=== PATIENT | female | born 1995 | race Hispanic/Latino ===

== ENCOUNTER 2021-12-02 19:03 | Emergency (ER) | payer SELFPAY ==
[2021-12-02 19:48] LABS: Urine Blood 2+ (Negative); Urine Glucose Negative (Negative); Urine Protein Negative (Negative); Urine Specific Gravity 1.025 (1.005-1.030)
[2021-12-02 20:01] LABS: Urine Bacteria 20-50 /HPF (<20)
[2021-12-02 20:02] LABS: Urine Amorphous Sediment 1+ /HPF (NONE SEEN); Urine Mucus 2+ /HPF (NONE SEEN)
[2021-12-02 20:02] LABS: Urine Specific Gravity/Preg 1.005 (1.005-1.030)
[2021-12-02 20:09] LABS: Absolute Lymphocytes (CBC) 1.5 K/uL (0.7-4.9); Hematocrit 45.1 % (36.0-45.0); Lymphocytes % 14.5 % (15.3-44.8); MPV 8.4 fL (7.6-11.3); RBC Red Blood Cell Count 4.61 M/uL (3.86-4.86)
[2021-12-02 20:13] LABS: Albumin 3.8 g/dL (3.4-5.0); Bilirubin Total 0.8 mg/dL (0.2-1.0); Potassium 3.8 mmol/L (3.5-5.1); Protein, Total 7.5 g/dL (6.4-8.2)
[2021-12-02 20:41] LABS: SARS-COV-2 RT PCR NEGATIVE (NEGATIVE)
--- NOTE | 2021-12-02 20:55 | RAD REPORT ---
EXAM DESCRIPTION: CT - Abdomen Pelvis W Contrast - 12/02/2021 8:26 pm CLINICAL HISTORY: ABD PAIN COMPARISON: CT study 04/04/2014 TECHNIQUE: Biphasic, helical CT imaging of the abdomen and pelvis was performed following 100 ml non -ionic IV contrast. No oral contrast administered. All CT scans are performed using dose optimization technique as appropriate and may include automated exposure control or mA/KV adjustment according to patient size. FINDINGS: No suspicious findings in the lung bases. The liver, spleen, and pancreas show no suspicious focal findings. Liver attenuation is borderline to mildly fatty infiltrated. Gallbladder and biliary tree are also without suspicious finding. Symmetric renal function is seen with no hydronephrosis or suspicious renal mass. No pyelonephritis o r acute parenchymal process. No bladder abnormalities. No adrenal abnormalities. Uterus and ovaries s how no suspicious findings. No dilated bowel loops or bowel wall thickening. Appendix is normal. No free air, free fluid or infla mmatory stranding. No mass or bulky lymphadenopathy. No suspicious bony findings. IMPRESSION: Contrast enhanced CT abdomen and pelvis showing no acute or emergent finding. No significant change from 2014 study.
--- NOTE | 2021-12-02 23:08 | EDPHYS ---
Physician Documentation [facility] Name: Lety Guzman Age: 26 yrs Sex: Female : 1995 Arrival Date: 12/02/2021 Time: 19:06 Bed 4 Private MD: ED Physician Ayad Arroyo HPI: 12/02 19:38 This 26 yrs old Female presents to ER via Ambulatory with complaints of pm1 Nausea, Abdominal Pain. 19:38 The patient presents to the emergency department with nausea, vomiting. Onset: The pm1 symptoms/episode began/occurred this morning. Possible causes: unknown. The symptoms are aggravated by nothing. The symptoms are alleviated by Bowel movement. Associated signs and symptoms: Pertinent negatives: dysuria, fever. Severity of symptoms: in the emergency department the symptoms have resolved Pain is currently a 0 / 10. The patient has not experienced similar symptoms in the past. The patient has not recently seen a physician. 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 - Social history:: Smoking status: Patient reports the use of cigarette tobacco products, smokes one-half pack cigarettes per day, Patient uses alcohol, on a daily basis. ROS: 19:38 Constitutional: Negative for fever, chills, and weight loss, Cardiovascular: Negative pm1 for chest pain, palpitations, and edema, Respiratory: Negative for shortness of breath, cough, wheezing, and pleuritic chest pain. 19:38 Back: Negative for injury and pain, : Negative for injury, bleeding, discharge, and swelling, MS/Extremity: Negative for injury and deformity, Skin: Negative for injury, rash, and discoloration, Neuro: Negative for headache, weakness, numbness, tingling, and seizure. 19:38 Abdomen/GI: Positive for abdominal pain, nausea and vomiting, Negative for diarrhea, constipation. 19:38 All other systems are negative. Exam: 19:38 Constitutional: This is a well developed, well nourished patient who is awake, alert, pm1 and in no acute distress. Head/Face: Normocephalic, atraumatic. 19:38 Back: No spinal tenderness. No costovertebral tenderness. Full range of motion. Skin: Warm, dry with normal turgor. Normal color with no rashes, no lesions, and no evidence of cellulitis. MS/ Extremity: Pulses equal, no cyanosis. Neurovascular intact. Full, normal range of motion. 19:38 Cardiovascular: Exam negative for acute changes, Rate: normal, Rhythm: regular, Pulses: no pulse deficits are appreciated, Heart sounds: normal, normal S1and S2. 19:38 Respiratory: Exam negative for acute changes, respiratory distress, shortness of breath. 19:38 Abdomen/GI: Exam negative for acute changes, Inspection: abdomen appears normal, Palpation: abdomen is soft and non-tender, in all quadrants. 19:38 Neuro: Exam negative for acute changes, Orientation: is normal, Mentation: is normal, Motor: moves all fours. Vital Signs: 19:10 BP 123 / 64; Pulse 96; Resp 18; Temp 98.2(TE); Pulse Ox 97% on R/A; Weight 74.84 kg; ld1 Height 5 ft. 1 in. (154.94 cm); Pain 7/10; 19:32 BP 109 / 58; Pulse 85; Resp 18; Pulse Ox 95% on R/A; Pain 0/10; tw5 21:47 BP 117 / 85; Pulse 80; Resp 18 S; Pulse Ox 97% on R/A; as6 23:18 BP 120 / 84; Pulse 83; Resp 18 S; Pulse Ox 95% on R/A; as6 19:10 Body Mass Index 31.18 (74.84 kg, 154.94 cm) ld1 MDM: 20:37 Patient medically screened. pm1 23:07 Data reviewed: vital signs. Data interpreted: Pulse oximetry: on room air is 97 %. pm1 Interpretation: normal. Counseling: I had a detailed discussion with the patient and/or guardian regarding: the historical points, exam findings, and any diagnostic results supporting the discharge/admit diagnosis, lab results, radiology results, the need for outpatient follow up, to return to the emergency department if symptoms worsen or persist or if there are any questions or concerns that arise at home. 23:07 ED course: Patient reports resolution of abdominal pain on ER arrival post bowel pm1 movement. Patient refused pain medicines in the ER and has a prescription since her pain was resolved along with her nausea and vomiting. Patient without any dysuria, impression urine micro contaminated specimen. 12/02 19:31 Order name: CBC with Diff; Complete Time: 20:38 tw5 12/02 19:31 Order name: CMP; Complete Time: 20:38 tw5 12/02 19:31 Order name: Lipase; Complete Time: 20:38 tw5 12/02 19:31 Order name: Urine Microscopic Only; Complete Time: 20:38 tw5 12/02 19:42 Order name: COVID-19/FLU A+B (Document "Date of Onset" if Symptomatic) pm1 12/02 19:43 Order name: COVID-19/FLU A+B; Complete Time: 20:45 EDOH 12/02 19:31 Order name: IV Saline Lock; Complete Time: 19:34 tw5 12/02 19:31 Order name: Labs collected and sent; Complete Time: 19:34 tw5 12/02 19:47 Order name: Strep; Complete Time: 20:38 pm1 12/02 19:47 Order name: CT Abd/Pelvis - IV Contrast Only; Complete Time: 21:50 pm1 12/02 19:48 Order name: Urine Dipstick-Ancillary; Complete Time: 20:38 EDOH 12/02 19:50 Order name: Urine --Ancillary (enter results); Complete Time: 20:38 cs9 12/02 20:03 Order name: Urine Culture [facility] 12/02 20:17 Order name: Throat Culture [facility] 12/02 19:31 Order name: Urine Dipstick-Ancillary (obtain specimen); Complete Time: 19:49 tw5 12/02 19:31 Order name: Urine Test (obtain specimen); Complete Time: 19:49 tw5 Administered Medications: No medications were administered Disposition: 12/03 08:42 Co-signature as Attending Physician, Ayad Arroyo MD I agree with the assessment and kdr plan of care. Disposition Summary: 12/02/21 23:07 Discharge Ordered Location: Home pm1 Problem: new pm1 Symptoms: have improved pm1 Condition: Stable pm1 Diagnosis - Abdominal pain, unspecified pm1 Followup: pm1 - With: Emergency Department - When: As needed - Reason: Worsening of condition Followup: pm1 - With: Private Physician - When: 2 - 3 days - Reason: Recheck today's complaints, Continuance of care, Re-evaluation by your physician Discharge Instructions: - Discharge Summary Sheet pm1 - Abdominal Pain, Adult pm1 Forms: - Medication Reconciliation Form pm1 - Thank You Letter pm1 - Antibiotic Education pm1 - Prescription Opioid Use pm1 Signatures: Dispatcher [employer] EDMS Ayad Arroyo MD MD kdr Marinas, Patrick, NP FIRE BATTALION CHIEF pm1 Nano Barcenas RN RN ld1 Di Caballero tw5
--- NOTE | 2021-12-02 23:08 | ER ---
Nurse's Notes [facility] Name: Lety Guzman Age: 26 yrs Sex: Female : 1995 Arrival Date: 12/02/2021 Time: 19:06 Bed 4 Private MD: Diagnosis: Abdominal pain, unspecified Presentation: 12/02 19:10 Chief complaint: Patient states: I have been throwing up all morning. Now I have a pain ld1 in my RUQ. Coronavirus screen: Client presents with at least one sign or symptom that may indicate coronavirus-19. Standard/surgical mask placed on the client. Ebola Screen: No symptoms or risks identified at this time. Initial Sepsis Screen: Does the patient meet any 2 criteria? No. Patient's initial sepsis screen is negative. Does the patient have a suspected source of infection? No. Patient's initial sepsis screen is negative. Risk Assessment: Do you want to hurt yourself or someone else? Patient reports no desire to harm self or others. Onset of symptoms was December 02, 2021. 19:10 Method Of Arrival: Ambulatory ld1 19:10 Acuity: NIGHAT 3 ld1 Triage Assessment: 19:10 General: Appears in no apparent distress. comfortable, Behavior is calm, cooperative, ld1 appropriate for age. Pain: Complains of pain in right upper quadrant Pain does not radiate. Pain currently is 7 out of 10 on a pain scale. Quality of pain is described as throbbing, Pain began gradually, Is intermittent. Neuro: Level of Consciousness is awake, alert, obeys commands, Oriented to person, place, time, situation, Appropriate for age. Cardiovascular: Capillary refill < 3 seconds Patient's skin is warm and dry. Respiratory: Airway is patent Respiratory effort is even, unlabored. GI: Abdomen is round non-distended, Reports diarrhea, nausea, vomiting. 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 - Social history:: Smoking status: Patient reports the use of cigarette tobacco products, smokes one-half pack cigarettes per day, Patient uses alcohol, on a daily basis. Screenin:32 Abuse screen: Denies threats or abuse. Denies injuries from another. Nutritional tw5 screening: No deficits noted. Tuberculosis screening: No symptoms or risk factors identified. Fall Risk None identified. Assessment: 19:32 General: Reports "I woke up this morning with intense pain on the right side of my tw5 stomach. It got worse after I started vomiting. I have vomiting a couple of times today. The pain isnt constant, it comes and goes. Right now there isnt any pain but at the worse it is like a sharp 7.". Pain: Pain currently is 7 out of 10 on a pain scale. GI: Abdomen is non-distended, Bowel sounds present X 4 quads. Abdomen is tender to palpation in right upper quadrant. Derm: Skin is intact, is healthy with good turgor, Skin is pink, warm \\T\\ dry. 21:47 Reassessment: Patient appears in no apparent distress at this time. Patient and/or as6 family updated on plan of care and expected duration. Pain level reassessed. Patient is alert, oriented x 3, equal unlabored respirations, skin warm/dry/pink. pt rate pain 0/10 Patient states feeling better. Vital Signs: 19:10 BP 123 / 64; Pulse 96; Resp 18; Temp 98.2(TE); Pulse Ox 97% on R/A; Weight 74.84 kg; ld1 Height 5 ft. 1 in. (154.94 cm); Pain 7/10; 19:32 BP 109 / 58; Pulse 85; Resp 18; Pulse Ox 95% on R/A; Pain 0/10; tw5 21:47 BP 117 / 85; Pulse 80; Resp 18 S; Pulse Ox 97% on R/A; as6 23:18 BP 120 / 84; Pulse 83; Resp 18 S; Pulse Ox 95% on R/A; as6 19:10 Body Mass Index 31.18 (74.84 kg, 154.94 cm) ld1 ED Course: 19:06 Patient arrived in ED. es 19:10 Arm band placed on right wrist. ld1 19:11 Triage completed. ld1 19:17 Ludwin Avery, SHIVA is Primary Nurse. as6 19:29 Osei Mayers NP is PHCP. pm1 19:29 Ayad Arroyo MD is Attending Physician. pm1 19:32 Awaiting lab results. tw5 19:32 Patient has correct armband on for positive identification. Placed in gown. Bed in low tw5 position. Call light in reach. Pulse ox on. NIBP on. Door closed. Noise minimized. Lights dimmed. Moved to private room. Warm blanket given. Verbal reassurance given. 19:32 Initial lab(s) drawn, by me, sent to lab. Urine collected: clean catch specimen. tw5 Inserted saline lock: 20 gauge in right antecubital area, using aseptic technique. Blood collected. 19:49 CBC with Diff Sent. tw5 19:49 CMP Sent. tw5 19:49 Lipase Sent. tw 19:49 Urine Microscopic Only Sent. tw5 19:53 Primary Nurse role handed off by Ludwin Avery RN tw5 19:53 Di Caballero is Primary Nurse. tw 19:53 Strep Sent. tw 19:53 COVID-19/FLU A+B Sent. tw 19:53 COVID-19/FLU A+B (Document "Date of Onset" if Symptomatic) Sent. tw 19:53 COVID swab sent to lab. Flu and/or RSV swab sent to lab. Strep swab sent to lab. tw5 20:26 CT Abd/Pelvis - IV Contrast Only In Process Unspecified. EDMS 23:20 No provider procedures requiring assistance completed. IV discontinued, intact, as6 bleeding controlled, No redness/swelling at site. Pressure dressing applied. Administered Medications: No medications were administered Outcome: 23:07 Discharge ordered by . pm1 23:20 Discharged to home ambulatory. as6 23:20 Condition: good 23:20 Discharge instructions given to patient, Instructed on discharge instructions, follow up and referral plans. Demonstrated understanding of instructions, follow-up care. 23:21 Patient left the ED. as6 Signatures: Dispatcher [employer] EDCarie Aguila Patrick, GENNARO MOTOR VEHICLE CLERK pm1 Nano Barcenas, SHIVA RN ld1 Di Caballero tw5 Ludwin Avery RN RN as6
[2021-12-03 03:25] VITALS: TEMP 98.2
[2021-12-03 03:27] VITALS: BP 120/84; O2SAT 95
== END 2021-12-02 23:21 | disposition home or self-care (01) ==
LOC: ER 19:03
DX: R10.9 Unspecified abdominal pain (principal); R11.2 Nausea with vomiting, unspecified; F17.210 Nicotine dependence, cigarettes, uncomplicated; Z20.822 Contact with and (suspected) exposure to COVID-19
CPT/HCPCS: 0240U; 36415; 74177; 80053; 81003; 81015; 81025; 83690; 85025; 87070; 87081; 87086; 87088; 99284; Q9967

== ENCOUNTER 2022-02-17 02:13 | Emergency (ER) | payer SELFPAY ==
[2022-02-17 03:17] LABS: Absolute Lymphocytes (CBC) 3.4 K/uL (0.7-4.9); Hematocrit 45.1 % (36.0-45.0); Lymphocytes % 32.1 % (15.3-44.8); MPV 8.2 fL (7.6-11.3); RBC Red Blood Cell Count 4.66 M/uL (3.86-4.86)
[2022-02-17 03:24] LABS: Potassium 3.6 mmol/L (3.5-5.1)
[2022-02-17] MEDS ORDERED: TETANUS & DIPHTHERIA TOX,ADULT 0.5 ML VIAL ONE (03:34)
[2022-02-17] MEDS ORDERED: LIDOCAINE 1% W/EPI 1:100,000 MDV 20 ML VIAL ONE (03:45)
[2022-02-17 05:18] LABS: Urine Blood Trace-intact (Negative); Urine Glucose Negative (Negative); Urine Protein Negative (Negative)
[2022-02-17] MEDS ORDERED: CIPROFLOXACIN HCL 500 MG TAB ONE (05:24)
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
[2022-02-17 05:59] VITALS: TEMP 98.3; O2SAT 100
[2022-02-17 06:01] VITALS: BP 122/61
--- NOTE | 2022-02-18 14:21 | RAD REPORT ---
EXAM DESCRIPTION: CT Head/Brain Without Contrast CT Cervical Spine Without Contrast CLINICAL HISTORY: Fall COMPARISON: None. TECHNIQUE: Head/brain and cervical spine axial images acquired without contrast. Coronal and sagitta l reformats created. Exam performed according to departmental dose-optimization program which include s automated exposure control, adjustment of mA and/or kV according to patient size, and/or use of ite rative reconstruction technique. FINDINGS: Head/Brain- No midline shift, mass effect, intracranial hemorrhage, or hydrocephalus. Brain parenchyma unremarkable. Right maxillary sinus shows mild mucosal thickening. Mastoid air cells clear. No skull fracture or significant skull lesion. Cervical Spine- Evaluation more difficult due to patient motion artifact. Cervical vertebral bodies show normal height and alignment. No fracture or subluxation. Cervical disc spaces unremarkable. No significant central canal or neuroforaminal stenosis. No paraspinal hematoma. Mild thyromegaly. Impacted left lower molar tooth. IMPRESSION: 1. Head/Brain- Unremarkable. 2. Cervical Spine- No CT evidence of cervical spine injury. Electronically signed by: Sunny Luque MD 02/17/2022 3:40 AM CDT Due to temporary technical issues with the PACS/Fluency reporting system, reports are being signed by the in house radiologist without review as a courtesy to ensure prompt reporting. The interpreting r adiologist is fully responsible for the content of the report.
--- NOTE | 2022-02-18 14:26 | RAD REPORT ---
EXAM DESCRIPTION: XR Left Hand Complete, 3 or More Views CLINICAL HISTORY: The patient is 26 years old and is Female; laceration TECHNIQUE: Frontal, lateral and oblique views of the left hand. COMPARISON: No relevant prior studies available. FINDINGS: BONES/JOINTS: Unremarkable. No acute fracture. No dislocation. SOFT TISSUES: Laceration to the thenar eminence and base of the second digit is present. No ra diopaque foreign body. IMPRESSION: Laceration to the thenar eminence and base of the second digit is present. No underlyi ng acute bony abnormality. Electronically signed by: Anitha Aguilar MD 02/17/2022 3:50 AM CDT Due to temporary technical issues with the PACS/Fluency reporting system, reports are being signed by the in house radiologist without review as a courtesy to ensure prompt reporting. The interpreting r adiologist is fully responsible for the content of the report.
== END 2022-02-17 05:54 | disposition home or self-care (01) ==
LOC: ER 02:13
PROC: 0JQK0ZZ Repair Left Hand Subcutaneous Tissue and Fascia, Open Approach (ICD-10-PCS; principal; 2022-02-17)
DX: S61.412A Laceration without foreign body of left hand, initial encounter (principal); T14.8XXA Other injury of unspecified body region, initial encounter; W19.XXXA Unspecified fall, initial encounter; F17.210 Nicotine dependence, cigarettes, uncomplicated
CPT/HCPCS: 36415; 70450; 72125; 80048; 81003; 81025; 85025; 86850; 86900; 86901; 90471; 90714; 99284

== ENCOUNTER 2022-05-13 03:02 | Emergency (ER) | payer SELFPAY ==
--- OUTSIDE RECORDS SUMMARY | 2022-05-13 03:06 | XMS REPORT | Continuity of Care Document ---
:1995 Author Organization [facility] t Address [address] [place] [address] Care Team Providers Name Role Phone PCP, PATIENT DOES NOT HAVE A Primary Care Physician Unavaila LORY Van Attending Clinician Unavailable Lory Ivy Attending Clinician LORY GABRIEL Admitting Clinician Unavailable Problems This patient has no known problems. Allergies, Adverse Reactions, Alerts Allergy Allergy Status Severity Reaction(s) Onset Inactive Treating Comm ents Source Name Type Date Date Clinician NO KNOWN Drug Active Univers ALLERGIE Class ity of S [facility] Social History Social Habit Start Date Stop Date Quantity Comments Source Exposure to 2022-02-07 2022-02-17 Not sure [facility] SARS-CoV-2 (event) 00:00:00 19:28:00 Medica l Branch Sex Assigned At [birth year] [facility] 00:00:00 00:00:00 [facility] Smoking Status Start Date Stop Date Source Unknown if ever smoked [facility] Medications Ordered Filled Start Stop Current Ordering Indication Dosage Frequency Signature Comments Components Source Medication Medication Date Date Medication? Clinician (SIG) Name Name ibuprofen 800mg 800 mg, Uni vers (IBU) 02-18 Oral, ity of tablet 800 00:45: 23:43 ONCE, 1 Vadim as mg 00 :00 dose, On Medical 02/17/22 Branch at 1945, SIMA Vital Signs Vital Name Observation Time Observation Value Comments Source Systolic blood 2022-02-17 23:27:00 108 mm[Hg] Univer sity of pressure [facility] Diastolic blood 2022-02-17 23:27:00 98 mm[Hg] Unive rsity of [facility] Heart rate 2022-02-17 23:27:00 87 /min [facility] Body temperature 2022-02-17 23:27:00 36.56 [facility] Respiratory rate 2022-02-17 23:27:00 19 /min [facility] Body height 2022-02-17 23:27:00 152.4 cm [facility] Body weight 2022-02-17 23:27:00 74.844 kg [facility] BMI 2022-02-17 23:27:00 32.22 kg/m2 [facility] Oxygen saturation in 2022-02-17 23:27:00 98 /min [facility] Arterial blood by [facility] Pulse oximetry Branch Procedures Procedure Date / Time Performed Performing Clinician Sour e XR HAND 3+ VW LEFT 2022-02-17 23:42:58 Lory Gabriel [facility] NOTICE OF PRIVACY 2022-02-17 23:11:19 Doctor Unassigned, No [facility] PRACTICES Name [facility] Branch Encounters Start End Encounter Admission Attending Care Care Encounter Source Date/Time Date/Time Type Type Clinicians Facility Department ID 2022-02-17 2022-02-17 Emergency X HARVEY NHSIMONA ERT [id number] [facility] 18:29:00 19:37:00 LORY gifford [facility] 2022-02-17 2022-02-17 Emergency FE Gabriel [id number] [facility] 18:29:00 19:37:00 Lory NEFF [id number] i ty [facility] [id number] [facility] [id number] [facility] 084 Branch Results This patient has no known results.
[2022-05-13 03:43] LABS: Hematocrit 46.6 % (36.0-45.0); Lymphocytes % 42.8 % (15.3-44.8); MCV 96.7 fL (80-100); MPV 7.8 fL (7.6-11.3); RBC Red Blood Cell Count 4.82 M/uL (3.86-4.86)
[2022-05-13 04:02] LABS: ALT/SGPT 33 U/L (12-78); AST/SGOT 16 U/L (15-37); Albumin 4.3 g/dL (3.4-5.0); Alkaline Phosphatase 54 U/L (45-117); BUN Blood Urea Nitrogen 9 mg/dL (7-18); Bicarbonate 19 mmol/L (21-32); Bilirubin Direct 0.1 mg/dL (0-0.2); Bilirubin Total 0.5 mg/dL (0.2-1.0); Glomerular Filtration Rate 101 ml/min (=/>90); Glucose Level 92 mg/dL (74-106); Potassium 3.5 mmol/L (3.5-5.1); Sodium Level 143 mmol/L (136-145)
--- NOTE | 2022-05-13 04:07 | ER ---
Nurse's Notes [facility] Name: Lety Guzman Age: 26 yrs Sex: Female : 1995 Arrival Date: 05/13/2022 Time: 03:13 Bed 3 Private MD: Diagnosis: Alcohol abuse with intoxication;Altered mental status, unspecified Presentation: 05/13 03:14 Chief complaint: EMS states: they were called out by the correction for report of pt tw5 unresponsive with excessive alcohol ingestion. Coronavirus screen: At this time, the client does not indicate any symptoms associated with coronavirus-19. Ebola Screen: No symptoms or risks identified at this time. Initial Sepsis Screen: Does the patient meet any 2 criteria? No. Patient's initial sepsis screen is negative. Does the patient have a suspected source of infection? No. Patient's initial sepsis screen is negative. Risk Assessment: Do you want to hurt yourself or someone else? Patient reports no desire to harm self or others. Onset of symptoms is unknown. 03:14 Method Of Arrival: EMS: [facility] tw5 03:14 Acuity: NIGHAT 2 tw5 Triage Assessment: 03:30 General: Behavior is agitated, anxious, restless, uncooperative, Smells of alcohol. tw5 Historical: - Allergies: 03:15 No Known Allergies; tw5 - Immunization history:: unknown. - Social history:: Smoking status: unknown Patient uses alcohol, patient/guardian reports recent binge of alcohol consumption. Screenin:24 Abuse screen: Denies threats or abuse. Denies injuries from another. Nutritional tw5 screening: No deficits noted. Tuberculosis screening: No symptoms or risk factors identified. Fall Risk Mental Status- Overestimates/Forgets Limitations (15 pts.). Assessment: 03:24 General: Appears uncomfortable, obese, Behavior is agitated, restless, uncooperative. tw5 General:. Pain: Denies pain. Neuro: Level of Consciousness is awake, alert, obeys commands, Oriented to person, place, time, situation. Cardiovascular: Capillary refill < 3 seconds is brisk in bilateral. Respiratory: Airway is patent Trachea midline Respiratory effort is. Vital Signs: 03:14 BP 107 / 68; Pulse 76; Resp 18 S; Pulse Ox 100% on R/A; Weight 83.91 kg (R); Height 5 tw5 ft. 4 in. (162.56 cm) (R); 03:32 BP 96 / 71; tw5 03:14 Body Mass Index 31.75 (83.91 kg, 162.56 cm) tw5 ED Course: 03:13 Patient arrived in ED. tw5 03:15 Triage completed. tw5 03:15 Arm band placed on Patient placed in an exam room, on a stretcher, on undergraduate advisor, tw5 on pulse oximetry. 03:17 Ayad Arroyo MD is Attending Physician. kdr 03:24 Di Caballero is Primary Nurse. tw5 03:24 Awaiting lab results. tw5 03:24 Patient has correct armband on for positive identification. Side rails up X2. Client tw5 placed on continuous cardiac and pulse oximetry monitoring. NIBP monitoring applied. Door closed. Noise minimized. Moved to private room. 03:24 Initial lab(s) drawn, by ED staff, sent to lab. Maintain EMS IV. Dressing intact. Good tw5 blood return noted. Site clean \T\ dry. Gauge \T\ site: 20 Left Wrist. 03:30 Acetaminophen Sent. tw5 03:30 Basic Metabolic Panel Sent. tw5 03:30 CBC with Diff Sent. tw5 03:30 Hepatic Function Sent. tw5 03:30 Salicylate Sent. tw5 03:30 ETOH Level Sent. tw5 03:57 Basic Metabolic Panel Sent. tw5 03:57 ETOH Level Sent. tw5 03:57 Hepatic Function Sent. tw5 03:57 Salicylate Sent. tw5 03:57 Urine Drug Screen Sent. tw5 03:59 CT Head C Spine In Process Unspecified. EDMS 04:26 No provider procedures requiring assistance completed. IV discontinued, intact, tw5 bleeding controlled, No redness/swelling at site. Pressure dressing applied. Administered Medications: No medications were administered Outcome: 04:06 Discharge ordered by . kdr 04:26 Discharged to Law Enforcement tw5 04:26 Condition: stable 04:26 Discharge instructions given to patient, police, Instructed on discharge instructions, follow up and referral plans. Demonstrated understanding of instructions, follow-up care. 04:26 Patient left the ED. tw5 Signatures: Dispatcher [employer] EDAZ Ayad Arroyo MD MD kdr Di Caballero tw5
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
[2022-05-13 05:10] VITALS: O2SAT 100
[2022-05-13 05:25] VITALS: BP 96/71
--- NOTE | 2022-05-13 15:21 | RAD REPORT ---
EXAM DESCRIPTION: CT - Head C Spine Mpr Wo Con - 05/13/2022 6:48 am CLINICAL HISTORY: The patient is 26 years old and is Female; Altered mental status TECHNIQUE: Axial computed tomography images of the head/brain and cervical spine without intravenous contrast. Sagittal and coronal reformatted images were created and reviewed. This CT exam was pe rformed using one or more of the following dose reduction techniques: automated exposure control, a djustment of the mA and/or kV according to patient size, and/or use of iterative reconstruction techn ique. COMPARISON: CT of the head and C-spine February 17, 2022 FINDINGS: ARTIFACTS: The exam is suboptimal secondary to motion artifact. BRAIN: Unremarkable. No hemorrhage. No significant white matter disease. No edema. VENTRICLES: Unremarkable. No ventriculomegaly. SKULL: No acute fracture. SINUSES: Unremarkable as visualized. No acute sinusitis. MASTOID AIR CELLS: Unremarkable as visualized. No mastoid effusion. VERTEBRAE: The vertebral body heights and alignment are relatively maintained. Evaluation of C4 a nd C5 is limited secondary to motion at these levels. No obvious fracture or malalignment. DISCS/SPINAL CANAL/NEURAL FORAMINA: The intervertebral disc spaces are maintained. No spinal aggie l stenosis. SOFT TISSUES: The soft tissues are normal. LUNG APICES: Unremarkable as visualized. IMPRESSION: 1. No acute intracranial findings. 2. Slightly limited exam of the cervical spine secondary to motion. No obvious acute fracture. Electronically signed by: Anitha Aguilar MD 05/13/2022 5:11 AM CDT Due to temporary technical issues with the PACS/Fluency reporting system, reports are being signed by the in house radiologists without review as a courtesy to insure prompt reporting. The interpreting radiologist is fully responsible for the content of the report.
== END 2022-05-13 04:26 | disposition home or self-care (01) ==
LOC: ER 03:02
DX: R41.82 Altered mental status, unspecified (principal); F10.129 Alcohol abuse with intoxication, unspecified
CPT/HCPCS: 36415; 70450; 72125; 80048; 80076; 80320; 80329; 85025; 99284